=== PATIENT | male | born 1945 | race Caucasian/White ===

== ENCOUNTER 2016-06-28 11:07 | Emergency (ER) | payer OTHER ==
[~2016-06-28] VITALS: Ht 182.9 cm; Wt 76.7 kg
[~2016-06-28 11:07] MED LIST: ATORVASTATIN CA40 MG PO; CELECOXIB200 MG PO; CENTRUM COMPLE1 EACH PO; CHILD ASPIRIN81 M1 PO; CHONDROITIN SU250 MG PO; FENOFIBRATE160 M1 PO; FINASTERIDE5 MG PO; GLUCOSAMINE1000 MG PO; HUMALOG100 UNIT/2 SC; HYDROCODON-ACE1 EAC7 PO; IRON325 M1 PO; LANTUS 3 M100 UNITS1 SC; LISINOPRIL10 MG PO; LOVENOX40 MG/0.4 SC; METFORMIN HCL1000 MG PO; MOVE FREE JOIN1 EACH PO; NAPROXEN500 MG PO; NOVOLOG100 UNIT/1 SC
[2016-06-28 14:22] VITALS: BP 115/74
[2016-06-29] MEDS ORDERED: NAPROXEN250 MG PO (08:59)
== END 2016-06-28 14:25 | disposition home or self-care (01) ==
LOC: EME → EDBD 11:07 → EME 14:25
DX: M25.552 Pain in left hip (principal); E78.5 Hyperlipidemia, unspecified; Z86.718 Personal history of other venous thrombosis and embolism
CPT/HCPCS: 73502; 99281; 99284; J3010

== ENCOUNTER 2016-06-29 07:09 | Emergency (ER) | payer OTHER ==
[~2016-06-29] VITALS: Ht 182.9 cm; Wt 76.7 kg
[2016-06-29 08:55] VITALS: BP 147/62
[2016-06-29] MEDS ORDERED: NAPROXEN250 MG PO (08:59)
== END 2016-06-29 09:05 | disposition home or self-care (01) ==
LOC: EME 07:09
PROVIDERS: Emergency Medicine
PROC: 0SSBXZZ Reposition Left Hip Joint, External Approach (ICD-10-PCS; principal; 2016-06-29)
DX: T84.021A Dislocation of internal left hip prosthesis, initial encounter (principal); E11.9 Type 2 diabetes mellitus without complications; E78.5 Hyperlipidemia, unspecified; I10 Essential (primary) hypertension; Z86.718 Personal history of other venous thrombosis and embolism; Z79.4 Long term (current) use of insulin; Z79.84 Long term (current) use of oral hypoglycemic drugs
CPT/HCPCS: 73501; 73502; 82948; 99281; 99285; J1170; J7030

== ENCOUNTER 2016-06-30 10:39 | Emergency (ER) | payer OTHER ==
[~2016-06-30] VITALS: Ht 182.9 cm; Wt 88.8 kg
[~2016-06-30 10:39] MED LIST changes: +NAPROXEN250 MG PO
[2016-06-30 15:53] VITALS: BP 124/72
== END 2016-06-30 15:54 | disposition home or self-care (01) ==
LOC: EME 10:39
PROC: 0SSBXZZ Reposition Left Hip Joint, External Approach (ICD-10-PCS; principal; 2016-06-30)
DX: M24.452 Recurrent dislocation, left hip (principal); Z96.642 Presence of left artificial hip joint; I10 Essential (primary) hypertension; E78.5 Hyperlipidemia, unspecified; E11.9 Type 2 diabetes mellitus without complications; Z79.4 Long term (current) use of insulin; Z86.718 Personal history of other venous thrombosis and embolism
CPT/HCPCS: 73501; 73502; 73700; 99281; 99285; J2270

== ENCOUNTER 2016-07-06 17:58 | Inpatient (IN) | payer OTHER ==
[~2016-07-06] VITALS: Ht 182.9 cm; Wt 89.0 kg
[2016-07-06 18:45] LABS: EOSINOPHIL (%) 4.1 % (0-5); EOSINOPHIL COUNT 0.2 K/uL (0-0.3); HEMATOCRIT 41.5 % (38.0-50.0); IMMATURE GRANULOCYTE (%) 0.3 % (0.0-0.7); IMMATURE GRANULOCYTE COUNT 0.2 K/uL; MCH 30.3 PG (29.0-34.0); MCHC 34.2 G/DL (30.0-36.0); MCV 88.5 FL (86-99); MONOCYTE (%) 8.6 % (3-12); MONOCYTE COUNT 0.5 K/uL (0-0.8); NEUTROPHIL (%) 52.7 % (45-76); PLATELET COUNT 202 K/uL (156-360); RBC DIS.WIDTH-CV 13.5 % (11.8-14.6); RBC DIS.WIDTH-SD 42.8 % (39-53); RED BLOOD COUNT 4.69 M/uL (4.00-5.50); WHITE BLOOD COUNT 5.8 K/uL (4.1-10.2)
[2016-07-06 18:53] LABS: CHLORIDE 104 mEq/L (99-109); POTASSIUM 4.3 mEq/L (3.7-5.4); SODIUM 138 mEq/L (136-147)
[2016-07-06 18:55] LABS: GLUCOSE 171 mg/dL (70-99)
[2016-07-06 18:56] LABS: ANION GAP 12 MEQ/L (2-14)
[2016-07-06 18:57] LABS: TOTAL BILIRUBIN 0.5 mg/dL (0.0-1.0)
[2016-07-06 18:59] LABS: ALKALINE PHOSPHATASE 86 IU/L (3-129); GFR ESTIMATE (CALCULATED) > 59 mL/min/
[2016-07-06 19:00] LABS: UREA NITROGEN (BUN) 18 mg/dL (9-23)
[2016-07-06] MEDS ORDERED: NAPROXEN500 MG PO (20:37)
[2016-07-06] MEDS ORDERED: NOVOLOG100 UNIT/1 SC (20:40)
[2016-07-06 20:56] LABS: INTER. NORMALIZED RATIO 1.1; PROTHROMBIN TIME 10.9 (9.2-11.2); PTT 26.1 (25-32)
[2016-07-06 22:49] VITALS: BP 133/77
[2016-07-06 23:05] LABS: POINT-OF-CARE METER ID UU14149397
[2016-07-07 04:14] VITALS: BP 127/60
[2016-07-07 06:30] LABS: POINT-OF-CARE METER ID UU14149397
[2016-07-07 08:00] VITALS: BP 128/65
[2016-07-07] MEDS ORDERED: OXYCODONE HCL5 MG PO (08:19)
[2016-07-07 11:29] VITALS: BP 115/56
[2016-07-07 11:39] LABS: POINT-OF-CARE METER ID UU14149397
[2016-07-07 15:31] VITALS: BP 116/61
[2016-07-07 16:44] LABS: POINT-OF-CARE METER ID UU14149397
[2016-07-07 21:55] LABS: POINT-OF-CARE METER ID UU13113717
[2016-07-07 23:28] VITALS: BP 125/62
[2016-07-08 03:11] VITALS: BP 153/68
[2016-07-08 07:00] VITALS: BP 152/70
[2016-07-08 07:12] LABS: POINT-OF-CARE METER ID UU13113717
[2016-07-08 11:06] VITALS: BP 139/63
[2016-07-08 11:36] LABS: POINT-OF-CARE METER ID UU14149397
[2016-07-08 16:41] LABS: POINT-OF-CARE USER ID 515036437
[2016-07-08 17:41] LABS: HEMATOCRIT 35.3 % (38.0-50.0); MCHC 32.3 G/DL (30.0-36.0); RBC DIS.WIDTH-CV 13.9 % (11.8-14.6); RBC DIS.WIDTH-SD 47.3 % (39-53)
[2016-07-08 18:18] LABS: MCV 92.9 FL (86-99); MEAN PLAT.VOLUME 9.7 uM^3 (9.0-12.4); PLATELET COUNT 132 K/uL (156-360); WHITE BLOOD COUNT 12.2 K/uL (4.1-10.2)
[2016-07-08 19:43] VITALS: BP 114/68
[2016-07-08 23:20] VITALS: BP 125/67
[2016-07-09 04:10] VITALS: BP 109/55
[2016-07-09 06:47] LABS: ANION GAP 13 MEQ/L (2-14); CHLORIDE 100 MEQ/L (99-109); GFR ESTIMATE (CALCULATED) > 59 mL/min/; POTASSIUM 4.5 MEQ/L (3.7-5.4); SAMPLE HEMOLYSIS CHECK 0; SAMPLE ICTERIC CHECK 0; SAMPLE LIPEMIA CHECK 0; SODIUM 135 MEQ/L (136-147); UREA NITROGEN (BUN) 19 mg/dL (9-23)
[2016-07-09 06:49] LABS: GLUCOSE 312 mg/dL (70-99)
[2016-07-09 07:12] LABS: POINT-OF-CARE METER ID UU14149397
[2016-07-09 08:02] VITALS: BP 128/60
[2016-07-09] MEDS ORDERED: SENNA PLUS TAB1 EACH PO (08:29)
[2016-07-09] MEDS ORDERED: LOVENOX40 MG/0.4 SC (08:30)
[2016-07-09] MEDS ORDERED: HYDROCODON-ACE1 EAC7 PO (08:30)
[2016-07-09 11:43] VITALS: BP 115/58
[2016-07-09 12:09] LABS: POINT-OF-CARE METER ID UU14149397
[2016-07-09 16:00] LABS: HEMATOCRIT 29.4 % (38.0-50.0); MCV 90.5 FL (86-99)
[2016-07-09 17:02] VITALS: BP 143/67
[2016-07-09 17:12] LABS: POINT-OF-CARE METER ID UU14149397
[2016-07-09 21:56] LABS: POINT-OF-CARE METER ID UU13113717
[2016-07-09 23:38] VITALS: BP 116/60
[2016-07-10 06:14] LABS: POINT-OF-CARE METER ID UU14149397
[2016-07-10 07:19] VITALS: BP 121/61
== END 2016-07-10 11:12 | DRG 468 ==
LOC: EME → EDBD 17:58 → EDOF 20:47 → 3EAST 20:47
PROVIDERS: Emergency Medicine; Orthopaedic Surgery
DX: T84.021A Dislocation of internal left hip prosthesis, initial encounter (principal); E11.65 Type 2 diabetes mellitus with hyperglycemia; I10 Essential (primary) hypertension; E78.5 Hyperlipidemia, unspecified; N40.0 Benign prostatic hyperplasia without lower urinary tract symptoms; Z86.718 Personal history of other venous thrombosis and embolism; Z95.828 Presence of other vascular implants and grafts; Z86.711 Personal history of pulmonary embolism; Z79.4 Long term (current) use of insulin
CPT/HCPCS: 73501; 73502; 76000; 80048; 80053; 82948; 85014; 85018; 85025; 85027; 85610; 85730; 86850; 86900; 86901; 86920; 94799; 97530 GP; 99281; 99285; C1776; J0131; J0690; J1100; J1170; J1650; J1815; J2405; J2710; J3010; J7030; P9045

== ENCOUNTER 2017-07-31 16:26 | Emergency (ER) | payer OTHER ==
[~2017-07-31] VITALS: Ht 182.9 cm; Wt 88.6 kg
[~2017-07-31 16:26] MED LIST changes: +OXYCODONE HCL5 MG PO; +SENNA PLUS TAB1 EACH PO
[2017-07-31 17:56] LABS: BASOPHIL (%) 0.4 % (0-1); EOSINOPHIL (%) 0.4 % (0-5); HEMATOCRIT 42.1 % (38.0-50.0); HEMOGLOBIN 13.9 G/DL (12.5-16.6); IMMATURE GRANULOCYTE (%) 0.6 % (0.0-0.7); LYMPHOCYTE COUNT 0.4 K/uL (1.0-2.8); MCH 31.3 PG (29.0-34.0); MCV 94.8 FL (86-99); MONOCYTE COUNT 0.6 K/uL (0-0.8); NEUTROPHIL (%) 80.6 % (45-76); NEUTROPHIL COUNT 4.4 K/uL (1.8-6.4); PLATELET COUNT 106 K/uL (156-360); RBC DIS.WIDTH-CV 13.6 % (11.8-14.6); RBC DIS.WIDTH-SD 47.3 % (39-53); RED BLOOD COUNT 4.44 M/uL (4.00-5.50); WHITE BLOOD COUNT 5.4 K/uL (4.1-10.2)
[2017-07-31 18:05] LABS: CHLORIDE 101 mEq/L (99-109); POTASSIUM 5.1 mEq/L (3.7-5.4); SODIUM 137 mEq/L (136-147)
[2017-07-31 18:06] LABS: GLUCOSE 190 mg/dL (70-99)
[2017-07-31 18:10] LABS: CREATININE 1.4 mg/dL (0.6-1.3); GFR ESTIMATE (CALCULATED) 53 mL/min/ (58.99-99999)
[2017-07-31 18:11] LABS: UREA NITROGEN (BUN) 16 mg/dL (9-23)
[2017-07-31 18:29] LABS: TROP-I INTERPRETATION NEGATIVE; TROPONIN-I < 0.01 ng/mL (0.0-0.30)
[2017-07-31] MEDS ORDERED: TAMIFLU75 MG PO (19:38)
[2017-07-31 20:21] VITALS: BP 131/81
== END 2017-07-31 20:23 | disposition home or self-care (01) ==
LOC: EME 16:26
PROVIDERS: Emergency Medicine
DX: J10.1 Influenza due to other identified influenza virus with other respiratory manifestations (principal); I10 Essential (primary) hypertension; E78.5 Hyperlipidemia, unspecified; Z86.718 Personal history of other venous thrombosis and embolism; Z79.4 Long term (current) use of insulin; Z88.5 Allergy status to narcotic agent
CPT/HCPCS: 80048; 84484; 85025; 87502; 93005; 99281; 99284